=== PATIENT | female | born 1975 | race Caucasian/White ===

== ENCOUNTER 2021-01-01 08:09 | Day surgery (SDC) | payer OTHER ==
[2021-01-01] MEDS ORDERED: Ringers Lactate 1,000 ML IV ONE ×2 (08:55→11:04)
[2021-01-01] MEDS ORDERED: CEFAZOLIN/SWI 1gm 1 GM/10 ML SYR ONE (08:55)
[2021-01-01] MEDS ORDERED: SCOPOLAMINE HYDROBROMIDE PATCH TD ONE (08:55)
[2021-01-01] MEDS ORDERED: ACETAMINOPHEN 500 MG TAB ONE (08:58)
[2021-01-01] MEDS ORDERED: CELECOXIB 100 MG CAPSULE ONE (08:58)
[2021-01-01] MEDS ORDERED: GENTAMICIN SULF 80 MG/2ML INJ ONE (09:20)
[2021-01-01] MEDS ORDERED: NS 0.9% VIAL 10 ML ONE ×2 (09:20→09:24)
[2021-01-01] MEDS ORDERED: CEFAZOLIN SODIUM 1 GM/VIAL ONE (09:20)
[2021-01-01] MEDS ORDERED: BACITRACIN 50000 UNIT VIAL ONE (09:21)
[2021-01-01] MEDS ORDERED: NA CHLORIDE 0.9% 500 ML ONE (09:21)
[2021-01-01] MEDS ORDERED: VECURONIUM 10 MG/VIAL IV ONE (09:24)
[2021-01-01] MEDS ORDERED: propofoL 200 MG/20 ML VIAL IV ONE (09:24)
[2021-01-01] MEDS ORDERED: KETOROLAC 30 MG/ML INJ ONE (09:24)
[2021-01-01] MEDS ORDERED: ROCURONIUM 50 MG/5 ML VIAL IV ONE (09:24)
[2021-01-01] MEDS ORDERED: dexAMETHasone 10 MG/ML VIAL ONE (09:24)
[2021-01-01] MEDS ORDERED: FENTANYL CITR 250 MCG/5 ML ONE (09:24)
[2021-01-01] MEDS ORDERED: MIDAZOLAM HCL 2 MG/2 ML INJ ONE (09:24)
[2021-01-01] MEDS ORDERED: ONDANSETRON 4 MG/2 ML VIAL ONE (09:24)
[2021-01-01] MEDS: LIDOCAINE 1% W/EPI 1:100,000 MDV 50 ML VIAL ONE ×2 (10:06→10:21)
[2021-01-01] MEDS ORDERED: Phenylephrine HCl 10 MG/ML 1 ML VIAL ONE (12:24)
[2021-01-01] MEDS ORDERED: GLYCOPYRROLATE 0.2 MG/ML SYR ONE (13:36)
[2021-01-01] MEDS ORDERED: NEOSTIGMINE 1 MG/ML -5 ML ONE (13:36)
[2021-01-01] MEDS ORDERED: Mastisol Adhesive Liq ONE (13:53)
[2021-01-01] MEDS ORDERED: CODEINE 30MG/APAP 300MG TAB PO ONE (14:45)
--- NOTE | 2021-01-01 14:59 | OP ---
Surgeon: Kolby Merino MD Preoperative Diagnosis: Breast descent, status post augmentation. Postoperative Diagnosis: Breast descent, status post augmentation. Procedure: Explantation, lift. Anesthesia: General. Procedure In Detail: After satisfactory induction of general anesthesia, chest was prepped with Dura Prep and dry sterile drapes applied in the usual manner. A template was used to outline t he right and left areola. Transverse curvilinear incisions were made. Intervening skin was de-epith elialized with a dermabrader or tenotomy scissors. A transverse incision was then made with electroc autery and flap elevated towards the sternum, clavicle, anterior axillary line. Lateral incision rev ealed implant with was retropectoral. Pocket was opened. Implant was removed. to 526 g. We then made an inferior incision. Irrigated the wound with antibiotic solution and then closed co nization with 2-0 PDS sutures. Straps were elevated at 12 o'clock, 1:30 and 3 o'clock position of th e right breast. The straps were woven in and out of the pectoralis muscle, back to base of cone back pectoralis muscle, back to base of the cone, tied to themselves with 2-0 PDS suture. This was done for 12 o'clock, 1:30 strap. . The 3 o'clock strap was sewn over the sternum at 3 o'clock position w ith 2-0 Ethibond. The wound was temporary stapled shut. The left side was done in a mirror-image ma nner. We then returned to right side, irrigated with antibiotic solution. A 10 KINDRA was brought out o f the axilla and then the lateral dog ear was excised. Wound was closed in layers with 3-0 Vicryl mancilla bcutaneous, then 3-0 PDS running subcuticular, tied from lateral to medial, medial to lateral, tied i n the vertical meridian of the breast. This was done in an identical manner. The patient was sat up . Site for new nipple-areolar complex was marked out. The patient was supine, tissue cored out and then the nipple was delivered and sewn with interrupted 4-0 PDS followed by 4-0 PDS running subcuticu lar. Dressings consisted of tincture of benzoin, Steri-Strips, 5 x 5, fluffs, and Clinton wrap. The pat ient tolerated procedure well and returned to Recovery. each breast. XIOMY/BETTY Voice ID: [id number] Report ID: [id number]
[2021-01-01] MEDS ORDERED: CODEINE 30MG/APAP 300MG TAB ONE (15:08)
[2021-01-01 15:23] VITALS: BP 103/61; TEMP 98.3; O2SAT 98
== END 2021-01-01 15:45 | disposition home health service (06) ==
LOC: OR 08:09 → EDBD 09:00 → OR 15:45
PROVIDERS: ATTEND Specialist
PROC: 0HPU0JZ Removal of Synthetic Substitute from Left Breast, Open Approach (ICD-10-PCS; 2021-01-01)
PROC: 0HPT0JZ Removal of Synthetic Substitute from Right Breast, Open Approach (ICD-10-PCS; 2021-01-01)
PROC: 0HSV0ZZ Reposition Bilateral Breast, Open Approach (ICD-10-PCS; principal; 2021-01-01 09:00)
DX: N64.81 Ptosis of breast (principal); Z45.812 Encounter for adjustment or removal of left breast implant; Z45.811 Encounter for adjustment or removal of right breast implant
CPT/HCPCS: 19316; 19328; J2704; J2370; J1580; J2250; J3010; J1100; J2710; J0690 ×2; J7120 ×2; J7040; J2405